=== PATIENT | female | born 1975 | race Caucasian/White ===

== ENCOUNTER → 2019-06-23 17:28 | Outpatient (CLI) | payer BC, SELFPAY ==
--- NOTE | ~2019-06-23 | MM_ITS ---
EXAMINATION: MM screening mary BI w francis HISTORY: Screening mammogram TECHNIQUE: Craniocaudal and mediolateral oblique 3-D tomosynthesis images were obtained and synthetic 2-D images were generated. CAD analysis was submitted and interpreted. COMPARISON: None, baseline BREAST PARENCHYMAL COMPOSITION: The breasts are heterogeneously dense, which may obscure small masses . FINDINGS: RIGHT BREAST: An asymmetry is present in the far posterior third of the outer breast on the craniocau rachel view. LEFT BREAST: There is no evidence of suspicious mass, calcification, or architectural distortion to s uggest malignancy. IMPRESSION: 1. Right breast asymmetry on the craniocaudal view. 2. Additional mammographic views and possible breast ultrasound are recommended to evaluate for janayig akua and establish a baseline given that this is the first mammographic examination. BI-RADS Category 0: Incomplete: Needs additional imaging evaluation. Reviewed, dictated and finalized at location A. IMPRESSION: 1. Right breast asymmetry on the craniocaudal view. 2. Additional mammographic views and possible breast ultrasound are recommended to evaluate for malignancy and establish a baseline given that this is the fir st mammographic examination. BI-RADS Category 0: Incomplete: Needs additional imaging evaluation.
== END ==
PROVIDERS: Visit Provider Internal Medicine
DX: Z12.31 Encounter for screening mammogram for malignant neoplasm of breast (principal); R92.8 Other abnormal and inconclusive findings on diagnostic imaging of breast
CPT/HCPCS: 77063; 77067

== ENCOUNTER → 2019-09-30 07:43 | Outpatient (CLI) | payer BC, SELFPAY ==
--- NOTE | ~2019-09-30 | MMUS_ITS ---
EXAMINATION: MM diagnostic mary RT w francis, US breast RT limited HISTORY: Right breast asymmetry on screening mammogram TECHNIQUE: Additional 3-D tomosynthesis images of the right breast were performed and synthetic 2-D i mages were generated. CAD analysis was submitted and interpreted. High resolution limited right breas t ultrasound was performed. COMPARISON: 06/23/2019 FINDINGS: MAMMOGRAPHIC FINDINGS: There is persistent asymmetry in the posterior third of the upper outer quadrant of the breast at the 11:00 location approximately 10 cm from the nipple. No definite mass, calcification, or architectura l distortion are identified. ULTRASOUND: There appears to be an 8 mm x 7 mm hypoechoic, not parallel mass with irregular margins at the 11:00 location 9 cm from the nipple. There are areas of posterior acoustic shadowing and peripheral vascula rity. IMPRESSION: 1. Indeterminate right breast mass on ultrasound. 2. Ultrasound-guided biopsy is recommended. BI-RADS category 4, suspicious findings. Reviewed, dictated and finalized at location A. IMPRESSION: 1. Indeterminate right breast mass on ultrasound. 2. Ultrasound-guided biopsy is recommended. BI-RADS category 4, suspicious findings.
== END ==
PROVIDERS: PCP Internal Medicine; Visit Provider Internal Medicine
DX: R92.8 Other abnormal and inconclusive findings on diagnostic imaging of breast (principal)
CPT/HCPCS: 76642; 77061; 77065; G0279